=== PATIENT | male | born 1995 | race Hispanic/Latino ===

== ENCOUNTER 2022-11-01 10:34 | Emergency (ER) | payer SELFPAY ==
--- NOTE | 2022-11-01 10:41 | EDPHYS ---
Physician Documentation [facility] Name: Zack Jackson Jr Age: 27 yrs Sex: Male : 1995 Arrival Date: 11/01/2022 Time: 10:34 Bed IW4 Private MD: ED Physician Marlo Lopez HPI: 11/01 10:39 This 27 yrs old Male presents to ER via Ambulatory with complaints of jmm Difficulty Swallowing, Sore Throat. 10:39 The patient presents with sore throat. Onset: The symptoms/episode began/occurred jmm gradually, 2 day(s) ago. Modifying factors: The symptoms are alleviated by nothing, the symptoms are aggravated by nothing. Associated signs and symptoms: Pertinent positives: chills. It is unknown whether or not the patient has had similar symptoms in the past. Historical: - Allergies: 11:18 No Known Allergies; nj1 - PMHx: 11:18 None; nj1 - PSHx: 11:18 None; nj1 - Immunization history:: Client reports receiving the 2nd dose of the Covid vaccine. - Social history:: Smoking status: Patient reports the use of cigarette tobacco products, smokes one-half pack cigarettes per day. ROS: 10:39 Constitutional: Positive for body aches, chills. jmm 10:39 ENT: Positive for sore throat. 10:39 All other systems are negative. Exam: 10:39 Constitutional: This is a well developed, well nourished patient who is awake, alert, jmm and in no acute distress. Head/Face: atraumatic. Eyes: EOMI, no conjunctival erythema appreciated 10:39 Neck: Trachea midline, Supple Chest/axilla: Normal chest wall appearance and motion. Cardiovascular: Regular rate and rhythm. No edema appreciated Respiratory: Normal respirations, no respiratory distress appreciated Abdomen/GI: Non distended Back: Normal ROM Skin: General appearance color normal MS/ Extremity: Moves all extremities, no obvious deformities appreciated, no edema noted to the lower extremities Neuro: Awake and alert Psych: Behavior is normal, Mood is normal, Patient is cooperative and pleasant 10:39 ENT: Posterior pharynx: erythema, that is moderate, peritonsillar mass, is not appreciated. Vital Signs: 11:16 BP 104 / 81; Pulse 75; Resp 18; Temp 98.5(O); Pulse Ox 100% ; Weight 63.5 kg; Height 5 nj1 ft. 5 in. ; Pain 4/10; 11:16 Body Mass Index 23.30 (63.50 kg, 165.1 cm) nd1 11:16 Pain Scale: Adult nj1 MDM: 10:39 Patient medically screened. [facility] 10:39 Differential diagnosis: influenza, pharyngitis, upper respiratory infection. Data [facility] reviewed: vital signs, nurses notes. I considered the following discharge prescriptions or medication management in the emergency department Medications were administered in the Emergency Department. See MAR. Counseling: I had a detailed discussion with the patient and/or guardian regarding: the historical points, exam findings, and any diagnostic results supporting the discharge/admit diagnosis, the need for outpatient follow up, to return to the emergency department if symptoms worsen or persist or if there are any questions or concerns that arise at home. 11/01 10:40 Order name: Strep rg Administered Medications: : Drug: Dexamethasone IM 10 mg Route: IM; Site: right deltoid; [facility] 11:40 Follow up: Response: No adverse reaction [facility] Disposition Summary: 11/01/22 10:40 Discharge Ordered Location: Home [facility] Condition: Stable [facility] Diagnosis - Acute pharyngitis, unspecified [facility] Followup: [facility] - With: Private Physician - When: 2 - 3 days - Reason: Recheck today's complaints, Continuance of care, Re-evaluation by your physician Discharge Instructions: - Discharge Summary Sheet [facility] - Pharyngitis [facility] Forms: - Medication Reconciliation Form [facility] - Thank You Letter [facility] - Antibiotic Education [facility] - Prescription Opioid Use [facility] - Work release form eb Prescriptions: - Amoxicillin 875 mg Oral Tablet - take 1 tablet by ORAL route every 12 hours for 10 days; 20 tablet; Refills: 0, [facility] Product Selection Permitted Signatures: Dispatcher [employer] Lenny Sow PA PA jmm Jac[place], Norma RN RN nj1
[2022-11-01] MEDS ORDERED: dexAMETHasone 10 MG/ML VIAL ONE (11:31)
--- NOTE | 2022-11-01 11:50 | ER ---
Nurse's Notes [facility] Name: Zack Jackson Jr Age: 27 yrs Sex: Male : 1995 Arrival Date: 11/01/2022 Time: 10:34 Bed IW4 Private MD: Diagnosis: Acute pharyngitis, unspecified Presentation: 11/01 11:16 Chief complaint: Patient states: Sore throat for 3 days, getting worse, having chills, nj1 feeling tired. Coronavirus screen: Vaccine status: Patient reports receiving the 2nd dose of the covid vaccine. Ebola Screen: Patient denies travel to an Ebola-affected area in the 21 days before illness onset. Initial Sepsis Screen: Does the patient meet any 2 criteria? No. Patient's initial sepsis screen is negative. Does the patient have a suspected source of infection? No. Patient's initial sepsis screen is negative. Risk Assessment: Do you want to hurt yourself or someone else? Patient reports no desire to harm self or others. Onset of symptoms was October 29, 2022. 11:16 Method Of Arrival: Ambulatory [facility] 11:16 Acuity: LISA 4 [facility] Historical: - Allergies: 11:18 No Known Allergies; nj1 - PMHx: 11:18 None; nj1 - PSHx: 11:18 None; nj1 - Immunization history:: Client reports receiving the 2nd dose of the Covid vaccine. - Social history:: Smoking status: Patient reports the use of cigarette tobacco products, smokes one-half pack cigarettes per day. Assessment: 11:19 Reassessment: Patient appears in no apparent distress at this time. Patient and/or nj1 family updated on plan of care and expected duration. Pain level reassessed. Vital Signs: 11:16 BP 104 / 81; Pulse 75; Resp 18; Temp 98.5(O); Pulse Ox 100% ; Weight 63.5 kg; Height 5 wa1 ft. 5 in. ; Pain 4/10; 11:16 Body Mass Index 23.30 (63.50 kg, 165.1 cm) [facility] 11:16 Pain Scale: Adult [facility] ED Course: 10:35 Patient arrived in ED. ts1 10:36 Lenny Navarro PA is PHCP. [facility] 10:36 Marlo Lopez MD is Attending Physician. jmm 11:00 Strep Sent. 6 11:18 Triage completed. nj1 11:19 Arm band placed on left wrist. nj1 11:20 Patient did not have IV access during this emergency room visit. nj1 Administered Medications: 11:27 Drug: Dexamethasone IM 10 mg Route: IM; Site: right deltoid; nj1 11:40 Follow up: Response: No adverse reaction nj Outcome: 10:40 Discharge ordered by . rg 11:19 Discharged to home ambulatory. nj 11:19 Condition: stable 11:19 Discharge instructions given to patient, Instructed on discharge instructions, follow up and referral plans. medication usage, Demonstrated understanding of instructions, follow-up care, medications, Prescriptions given X 1. 11:49 Patient left the ED. [facility] Signatures: Lenny Navarro PA PA [facility] Allison Velez 6 Karol Jimenez, ARUN RN nj Meghana Santiago PAS PAS ts1 Corrections: (The following items were deleted from the chart) 11:19 11:16 Pulse 75bpm; Resp 18bpm; Pulse Ox 100%; Temp 98.5F Oral; 63.5 kg; Height 5 ft. 5 nj1 in.; BMI: 23.3; Pain 4/10, Adult; nj1
[2022-11-01 11:55] VITALS: BP 104/81; TEMP 98.5; O2SAT 100
== END 2022-11-01 11:49 | disposition home or self-care (01) ==
LOC: ER 10:34
DX: J02.9 Acute pharyngitis, unspecified (principal); Z20.822 Contact with and (suspected) exposure to COVID-19
CPT/HCPCS: 87070; 87081; 96372; 99284; J1100